=== PATIENT | male | born 1985 | race Two or more races ===

== ENCOUNTER 2019-05-05 20:26 | Emergency (ER) | payer SELFPAY ==
[~2019-05-05] VITALS: Ht 170.2 cm; Wt 65.8 kg
[2019-05-05] MEDS ORDERED: HYDROmorphone HCL 2 MG/ML VL IV ONE (21:30)
[2019-05-05] MEDS ORDERED: ONDANSETRON HCL 4 MG/2 ML VIAL IV ONE (21:30)
[2019-05-06] MEDS ORDERED: HYDROcodone-ACET 10/325MG TAB PO ONE (00:30)
[2019-05-06] MEDS ORDERED: ONDANSETRON HCL 4 MG/2 ML VIAL IV ONE (02:00)
[2019-05-06] MEDS ORDERED: LIDOCAINE 1% HCL (LOCAL ANESTH.) INJ 20ML MDV ID ONE (02:00)
[2019-05-06] MEDS ORDERED: MORPHINE SULFATE 4 MG/ML SYR/VIAL IV ONE (02:00)
[2019-05-06] MEDS ORDERED: KETOROLAC TROMETH 30 MG/ML 1ML VIAL IV ONE (02:45)
[2019-05-06] MEDS ORDERED: LORazepam 2MG/ML-1ML VIAL IV ONE (03:00)
[2019-05-06 04:00] VITALS: BP 130/75
== END 2019-05-06 05:04 | disposition home or self-care (01) ==
LOC: EDBD 20:26 → ER 20:29
DX: S93.111A Dislocation of interphalangeal joint of right great toe, initial encounter (principal); S82.302A Unspecified fracture of lower end of left tibia, initial encounter for closed fracture; F12.10 Cannabis abuse, uncomplicated
CPT/HCPCS: 28660; 73590; 73630; 73660; 96374; 96375; 96376; 99284; J1170; J1885; J2001; J2060; J2270; J2405